=== PATIENT | female | born 1950 | race African-American/Black ===

== ENCOUNTER 2018-07-14 13:47 | Emergency (ER) | payer MEDICARE ==
[~2018-07-14] VITALS: Ht 167.6 cm; Wt 55.0 kg
[2018-07-14] MEDS ORDERED: AMLO2.5T45 PO (13:58)
[2018-07-14] MEDS ORDERED: HYDR12.529 PO (13:58)
[2018-07-14] MEDS ORDERED: SODIUM CHLORIDE 0.9% 1,000 ML IV ONE (14:57)
[2018-07-14 15:26] LABS: BASOPHILS % 1.1 % (0.0-2.0); EOSINOPHILS % 1.8 % (0.0-5.0); HEMATOCRIT. 42.3 % (36.0-48.0); HEMOGLOBIN. 14.6 g/dL (12.0-16.0); LYMPHOCYTES % 30.4 % (20.0-50.0); MEAN CORPUSCULAR HEMOGLOBIN 32.7 pg (28.0-32.0); MEAN PLATELET VOLUME 9.2 fl (7.4-10.4); MONOCYTES % 7.6 % (2.0-8.0); NEUTROPHILS % 59.1 % (40.0-76.0); PLATELET 320 x1000/uL (130-400); RED BLOOD CELL COUNT 4.46 mill/uL (4.2-5.4); RED CELL DISTRIBUTION WIDTH 13.6 % (11.6-14.6)
[2018-07-14 15:33] LABS: CHLORIDE 104 mEq/L (98-107)
[2018-07-14 15:34] LABS: PARTIAL THROMBOPLASTIN TIME 24.3 sec (23.4-31.0); PROTHROMBIN TIME 10.2 sec (9.1-11.1)
[2018-07-14] MEDS ORDERED: POTASSIUM CHLORIDE 20MEQ TABLET SR PO ONE (16:00)
[2018-07-14 16:50] VITALS: BP 131/63
== END 2018-07-14 17:22 | disposition home or self-care (01) ==
LOC: ER 13:47
DX: R00.2 Palpitations (principal); E87.6 Hypokalemia; J44.9 Chronic obstructive pulmonary disease, unspecified; I10 Essential (primary) hypertension; Z88.8 Allergy status to other drugs, medicaments and biological substances
CPT/HCPCS: 36415; 71045; 80053; 83735; 83880; 84443; 84484; 85025; 85610; 85730; 93005; 99284; J7030